=== PATIENT | male | born 1970 | race Two or more races ===

== ENCOUNTER 2023-07-11 16:34 | Inpatient (IN) | payer OTHER ==
[~2023-07-11] VITALS: Ht 177.8 cm; Wt 90.7 kg
[2023-07-11] MEDS ORDERED: ENALAPRIL MALEA10 MG (16:44)
--- NOTE | 2023-07-11 16:45 | NUR ---
PACIENTE MASCULINO ALERTA Y ORIENTADO X3, REFIERE TENER DOLOR EN EL AREA DE LA SANTANA EN LADO ZAYNAB.
--- NOTE | 2023-07-11 18:34 | NUR ---
EVALUA PTE. SE EDUCA SOBRE TX MEDICO, REFIERE COPRENDER. SE REALIZAN MUESTRAS DE LABORATORIO BAJO MEDIDAS ASEPTICAS. SE ADMINISTRAN MEDICAMENTOS RISA ORDEN MEDICA. SE COORDINA CT. PENDIENTE RE-EVALUACION MEDICA.
[2023-07-14] MEDS ORDERED: GABAPENTIN800 MG PO (10:38)
[2023-07-14] MEDS ORDERED: METRONIDAZOLE500 MG PO (10:38)
[2023-07-14] MEDS ORDERED: LISINOPRIL40 MG PO (10:38)
[2023-07-14] MEDS ORDERED: PANTOPRAZOLE SO40 MG PO (10:38)
[2023-07-14] MEDS ORDERED: PROBIOTIC1 EAC2 PO (10:38)
[2023-07-14] MEDS ORDERED: CIPROFLOXACIN500 MG PO (10:38)
[2023-07-14] MEDS ORDERED: TAMS0.4C PO (10:38)
[2023-07-14] MEDS ORDERED: ZOFRAN8 MG PO (10:41)
== END 2023-07-14 12:07 | disposition home or self-care (01) | DRG 392 ==
LOC: ER 16:34 → MEDI 22:07
PROVIDERS: General Practice; Internal Medicine; ADMIT Internal Medicine; ATTEND Internal Medicine
PROC: BW21ZZZ Computerized Tomography (CT Scan) of Abdomen and Pelvis (ICD-10-PCS; principal; 2023-07-11)
DX: K57.92 Diverticulitis of intestine, part unspecified, without perforation or abscess without bleeding (principal); I10 Essential (primary) hypertension; E11.9 Type 2 diabetes mellitus without complications; Z79.4 Long term (current) use of insulin

== ENCOUNTER 2023-09-17 10:33 | Emergency (ER) | payer OTHER ==
[~2023-09-17] VITALS: Ht 170.2 cm; Wt 131.5 kg
[~2023-09-17 10:33] MED LIST: CIPROFLOXACIN500 MG PO; ENALAPRIL MALEA10 MG; GABAPENTIN800 MG PO; LISINOPRIL40 MG PO; METRONIDAZOLE500 MG PO; PANTOPRAZOLE SO40 MG PO; PROBIOTIC1 EAC2 PO; TAMS0.4C PO; ZOFRAN8 MG PO
== END 2023-09-17 15:10 | disposition home or self-care (01) ==
LOC: ER 10:33
DX: K62.5 Hemorrhage of anus and rectum (principal); R19.7 Diarrhea, unspecified; E11.9 Type 2 diabetes mellitus without complications; Z79.84 Long term (current) use of oral hypoglycemic drugs; I10 Essential (primary) hypertension